=== PATIENT | male | born 1960 | race Caucasian/White ===

== ENCOUNTER 2018-11-10 09:37 | Inpatient (IN) | payer OTHER ==
[2018-11-10] MEDS ORDERED: LIDOCAINE 1% MPF 5 ML VIAL ONE (10:43)
[2018-11-10] MEDS ORDERED: BUPIVACAINE 0.25% PF 10 ML VIAL ONE (10:46)
[2018-11-10] MEDS ORDERED: LIDOCAINE 1% 20 ML MDV ONE (10:49)
--- NOTE | 2018-11-10 11:43 | RAD REPORT ---
EXAM DESCRIPTION: RAD - Hand Left 3 View - 11/10/2018 11:28 am CLINICAL HISTORY: injury with circular saw COMPARISON: No comparisons FINDINGS: Soft tissue laceration with comminuted tuft fracture involving the second and third finger . No radiopaque foreign body is seen.
[2018-11-10] MEDS ORDERED: NA CHLORIDE 0.9% 500 ML ONE (11:50)
[2018-11-10] MEDS ORDERED: CEFAZOLIN/SWI 1gm 1 GM/10 ML SYR ONE (11:51)
--- NOTE | 2018-11-10 11:55 | ER ---
Nurse's Notes [facility] Name: Yves Lan Age: 58 yrs Sex: Male : 1960 Arrival Date: 11/10/2018 Time: 09:39 Bed 10 Private MD: Unknown, Unknown Diagnosis: Displaced fracture of distal phalanx of left middle finger-open;Displaced fracture of distal phalanx of left index finger-open Presentation: 11/10 10:18 Presenting complaint: Patient states: i was cutting a piece of wood with a skill saw tw2 and it cut 1st and 2nd finger on the LEFT hand, about 1 hour ago. Transition of care: patient was not received from another setting of care. Onset of symptoms was November 10, 2018. Risk Assessment: Do you want to hurt yourself or someone else? Patient reports no desire to harm self or others. Initial Sepsis Screen: Does the patient meet any 2 criteria? No. Patient's initial sepsis screen is negative. Does the patient have a suspected source of infection? No. Patient's initial sepsis screen is negative. Care prior to arrival: None. 10:18 Method Of Arrival: Ambulatory tw2 10:18 Acuity: GREGORY 4 tw2 11:37 Acuity: GREGORY 3 iw Triage Assessment: 11:00 General: Behavior is calm. iw 12:00 General: Appears in no apparent distress. iw 12:00 Injury Description: Laceration. iw Historical: - Allergies: 10:20 Iodinated Contrast Media - IV Dye; tw2 - Home Meds: 10:20 bisoprolol fumarate Oral [Active]; irbesartan Oral [Active]; tw2 - PMHx: 10:20 Hypertension; Kidney stones; SVT; tw2 - PSHx: 10:20 Bilateral knee repacement; foot sx; Hernia repair; cardiac ablation; tw2 - Immunization history:: Last tetanus immunization: unknown. - Social history:: Smoking status: . - Ebola Screening: : Patient denies travel to an Ebola-affected area in the 21 days before illness onset. Screenin:21 Abuse screen: Denies threats or abuse. Nutritional screening: No deficits noted. tw2 Tuberculosis screening: No symptoms or risk factors identified. Fall Risk None identified. Assessment: 10:50 General: Appears Behavior is calm. Pain: Complains of pain in left hand. Neuro: Level iw of Consciousness is awake, alert, Oriented to person, place, time. Cardiovascular: Patient's skin is warm and dry. Respiratory: Respiratory effort is even, unlabored, Respiratory pattern is regular. Derm: Skin is intact, is healthy with good turgor. Musculoskeletal: Range of motion: intact in all extremities. Injury Description: Laceration sustained to palmar aspect of distal phalanx of left middle finger and palmar aspect of distal phalanx of left index finger is jagged, 0.5 to 2.5 cm long, a small amount of bleeding noted at this time. 11:10 Reassessment: fingers irrigated with 2L NS and chlorhexidine soap. iw Vital Signs: 10:19 BP 154 / 80; Pulse 71; Resp 18; Temp 98.4(O); Pulse Ox 95% on R/A; Weight 117.93 kg tw2 (R); Height 5 ft. 11 in. (180.34 cm); Pain 10/10; 10:19 Body Mass Index 36.26 (117.93 kg, 180.34 cm) tw2 ED Course: 09:39 Patient arrived in ED. ag5 09:40 Unknown, Unknown is Private Physician. ag5 10:19 Triage completed. tw2 10:19 Arm band placed on. tw2 10:22 Donnell Gaston PA is PHCP. cp 10:22 Alvino Bernard MD is Attending Physician. cp 10:22 Bed in low position. Call light in reach. Adult w/ patient. tw2 10:36 Mindi Dominguez, RN is Primary Nurse. iw 11:32 XRAY Hand LEFT 3 View In Process Unspecified. EDMS 11:43 EKG done, by technician test systems. reviewed by Donnell SHEIKH. at1 11:45 Initial lab(s) drawn, by ky, sent to lab. Inserted saline lock: 20 gauge in right hand, iw using aseptic technique. 11:52 Leonardo Cook MD is Hospitalizing Provider. cp 12:25 No provider procedures requiring assistance completed. Patient admitted, IV remains in iw place. Administered Medications: 11:00 Drug: Lidocaine (1 %) 10 mg Route: Infiltration; iw 11:00 Drug: Marcaine (0.5 %) 10 ml Volume: 10 ml; Route: Infiltration; iw 12:09 Drug: Ancef 1 grams Route: IVPB; Site: right hand; iw 12:10 Drug: NS 0.9% 500 ml Route: IV; Rate: bolus; Site: right hand; iw 12:18 Drug: Tetanus-Diphtheria Toxoid Adult 0.5 ml {Tanning Wheel Filler: [employer]. Exp: 09/18/2019. Lot #: [id number]. } Route: IM; Site: right deltoid; Outcome: 11:55 Decision to Hospitalize by Provider. cp 12:30 Admitted to OR accompanied by nurse, via wheelchair, with chart. iw 12:30 Condition: good 12:30 Discharge instructions given to patient, family, Instructed on the need for admit, Demonstrated understanding of instructions. 12:31 Patient left the ED. iw Signatures: Dispatcher [employer] Mindi Casarez, RN RN iw Anitha Katz, retail district manager EKG Tat1 Donnell Gaston PA PA cp Wise, Tara RN RN tw2 Ngoc Whyte ag5
--- NOTE | 2018-11-10 11:56 | EDPHYS ---
Physician Documentation [facility] Name: Yves Lan Age: 58 yrs Sex: Male : 1960 Arrival Date: 11/10/2018 Time: 09:39 Bed 10 Private MD: Unknown, Unknown ED Physician Alvino Bernard HPI: 11/10 10:35 This 58 yrs old Male presents to ER via Ambulatory with complaints of Finger cp Injury, Laceration. 10:35 The patient or guardian reports injury, a laceration, irregular, pain. The complaints cp affect the palmar aspect of distal phalanx of left index finger and palmar aspect of distal phalanx of left middle finger. Context: The problem was sustained at home, resulted from electric saw. Onset: The symptoms/episode began/occurred 1 hour(s) ago. Associated signs and symptoms: Pertinent negatives: cyanosis distally. Severity of symptoms: in the emergency department the symptoms are unchanged, despite home interventions. Historical: - Allergies: 10:20 Iodinated Contrast Media - IV Dye; tw2 - Home Meds: 10:20 bisoprolol fumarate Oral [Active]; irbesartan Oral [Active]; tw2 - PMHx: 10:20 Hypertension; Kidney stones; SVT; tw2 - PSHx: 10:20 Bilateral knee repacement; foot sx; Hernia repair; cardiac ablation; tw2 - Immunization history:: Last tetanus immunization: unknown. - Social history:: Smoking status: . - Ebola Screening: : Patient denies travel to an Ebola-affected area in the 21 days before illness onset. ROS: 10:40 Constitutional: Negative for fever. cp 10:40 Neck: Negative for pain with movement, pain at rest. cp 10:40 Cardiovascular: Negative for chest pain, palpitations. 10:40 Respiratory: Negative for cough, shortness of breath, wheezing. 10:40 Abdomen/GI: Negative for abdominal pain, vomiting, diarrhea, constipation. 10:40 Skin: Positive for laceration(s), of the palmar aspect of distal phalanx of left middle finger and palmar aspect of distal phalanx of left index finger. 10:40 Neuro: Negative for altered mental status, headache, syncope. 10:40 All other systems are negative. Exam: 10:50 Constitutional: The patient appears in no acute distress, alert, awake, cp non-diaphoretic, non-toxic, well developed, well nourished, uncomfortable. 10:50 Head/Face: Normocephalic, atraumatic. cp 10:50 Eyes: Periorbital structures: appear normal, Conjunctiva: normal, no exudate, no injection, Lids and lashes: appear normal, bilaterally. 10:50 ENT: External ear(s): are unremarkable, Nose: is normal, Mouth: is normal, Posterior pharynx: is normal, airway is patent. 10:50 Neck: ROM/movement: is normal, is supple, without pain, no range of motions limitations, no nuchal rigidity. 10:50 Chest/axilla: Inspection: normal, Palpation: is normal, no crepitus, no tenderness. 10:50 Cardiovascular: Rate: normal, Rhythm: regular, Edema: is not appreciated. 10:50 Respiratory: the patient does not display signs of respiratory distress, Respirations: normal, no use of accessory muscles, labored breathing, is not present, Breath sounds: are clear throughout, no decreased breath sounds. 10:50 Abdomen/GI: Inspection: abdomen appears normal, Palpation: abdomen is soft and non-tender, in all quadrants. 10:50 Musculoskeletal/extremity: Perfusion: the extremity is with brisk capillary refill, the distal phalanx of left index finger and distal phalanx of left middle finger decreased sensation. 10:50 Skin: injury, laceration(s), of the palmar aspect of distal phalanx of left index finger, of the palmar aspect of distal phalanx of left index finger, that can be described as no foreign body, irregular, with mild bleeding. 11:45 ECG was reviewed by the Attending Physician. cp Vital Signs: 10:19 BP 154 / 80; Pulse 71; Resp 18; Temp 98.4(O); Pulse Ox 95% on R/A; Weight 117.93 kg tw2 (R); Height 5 ft. 11 in. (180.34 cm); Pain 10/10; 10:19 Body Mass Index 36.26 (117.93 kg, 180.34 cm) tw2 MDM: 10:28 Patient medically screened. cp 11:29 Physician consultation: Stanford Curiel MD was called at 11:25, was contacted at 11:25, cp regarding consult, patient's condition, will perform wound irrigation and repair laceration in OR. 11:30 Data reviewed: vital signs, nurses notes, radiologic studies, plain films. cp 11:30 Differential diagnosis: open fracture, closed fracture, amputation, skin avulsion. Test cp interpretation: by ED physician or midlevel provider: plain radiologic studies, xrays of left hand comminuted fractures of distal phalanx of left index and left middle fingers. 11:37 Physician consultation: Leonardo Cook MD was called at 11:38, left message on voicemail. 11/10 11:29 Order name: Basic Metabolic Panel 11/10 11:29 Order name: CBC with Diff cp 11/10 11:29 Order name: PT-INR 11/10 12:08 Order name: CBC with Automated Diff EDMS 11/10 12:08 Order name: CBC with Automated Diff EDMS 11/10 12:08 Order name: CBC with Automated Diff EDMS 11/10 10:35 Order name: XRAY Hand LEFT 3 View 11/10 11:29 Order name: XRAY Chest (1 view) 11/10 12:08 Order name: CBC with Automated Diff EDMS 11/10 12:09 Order name: Comprehensive Metabolic Panel EDMS 11/10 12:09 Order name: Comprehensive Metabolic Panel EDMS 11/10 12:09 Order name: Comprehensive Metabolic Panel EDMS 11/10 12:09 Order name: Comprehensive Metabolic Panel EDMS 11/10 10:35 Order name: Dressing - Wound; Complete Time: 12:26 11/10 10:35 Order name: Gloves, Sterile; Complete Time: 10:49 11/10 10:35 Order name: Setup Suture Tray; Complete Time: 10:49 11/10 11:22 Order name: IV; Complete Time: 12:10 11/10 11:29 Order name: EKG; Complete Time: 11:30 11/10 11:29 Order name: EKG - Nurse/Tech; Complete Time: 11:47 11/10 11:29 Order name: Labs collected and sent; Complete Time: 12:26 11/10 11:29 Order name: O2 Per Protocol; Complete Time: 12:26 11/10 11:29 Order name: O2 Sat Monitoring; Complete Time: 12:26 11/10 12:08 Order name: CONS Physician Consult EDMS 11/10 12:08 Order name: NPO EDMN EC:45 Rate is 60 beats/min. Rhythm is regular. OH interval is normal. QRS interval is cp prolonged at 102 msec. QT interval is normal. T waves are Inverted in lead aVR. Interpreted by me. Reviewed by me. Administered Medications: 11:00 Drug: Lidocaine (1 %) 10 mg Route: Infiltration; iw 11:00 Drug: Marcaine (0.5 %) 10 ml Volume: 10 ml; Route: Infiltration; iw 12:09 Drug: Ancef 1 grams Route: IVPB; Site: right hand; iw 12:10 Drug: NS 0.9% 500 ml Route: IV; Rate: bolus; Site: right hand; iw 12:18 Drug: Tetanus-Diphtheria Toxoid Adult 0.5 ml {Marine Fitter: [employer]. Exp: iw 09/18/2019. Lot #: [id number]. } Route: IM; Site: right deltoid; Disposition: 12:45 Chart complete. cp 15:45 Co-signature as Attending Physician, Alvino Bernard MD I agree with the assessment and kdr plan of care. Disposition: 11/10/18 11:55 Hospitalization ordered by Leonardo Cook for Observation. Preliminary diagnosis are Displaced fracture of distal phalanx of left middle finger - open, Displaced fracture of distal phalanx of left index finger - open. - Bed requested for Operating Room. - Status is Observation. iw - Condition is Stable. - Problem is new. - Symptoms have improved. UTI on Admission? No Signatures: Dispatcher [employer] EDMN Alexa Villa RN RN Alvino Bernard MD MD [email or web address] Mindi Dominguez RN RN iw Donnell Gaston PA PA cp Karla Mora RN RN tw2 Corrections: (The following items were deleted from the chart) 11:37 11:29 Cardiac monitoring ordered. cp iw 12:03 11:55 Hospitalization Ordered by Leonardo Cook MD for Inpatient Admission. Preliminary diagnosis is Displaced fracture of distal phalanx of left middle finger - open; Displaced fracture of distal phalanx of left index finger - open. Bed requested for Telemetry/MedSurg (Inpatient). Status is Inpatient Admission. Condition is Stable. Problem is new. Symptoms have improved. UTI on Admission? No. cp 12:30 12:03 11/10/2018 11:55 Hospitalization Ordered by Leonardo Cook MD for Inpatient cp Admission. Preliminary diagnosis is Displaced fracture of distal phalanx of left middle finger - open; Displaced fracture of distal phalanx of left index finger - open. Bed requested for Telemetry/MedSurg (Inpatient). Status is Inpatient Admission. Condition is Stable. Problem is new. Symptoms have improved. UTI on Admission? No. dw 12:31 12:30 11/10/2018 11:55 Hospitalization Ordered by Leonardo Cook MD for Observation. iw Preliminary diagnosis is Displaced fracture of distal phalanx of left middle finger - open; Displaced fracture of distal phalanx of left index finger - open. Bed requested for Operating Room. Status is Observation. Condition is Stable. Problem is new. Symptoms have improved. UTI on Admission? No. cp
[2018-11-10] MEDS ORDERED: ONDANSETRON 4 MG/2 ML VIAL IV PRN (12:05)
[2018-11-10] MEDS ORDERED: NA CHLORIDE 0.9% 1,000 ML IV SCH (12:05)
[2018-11-10] MEDS ORDERED: TETANUS & DIPHTHERIA TOX,ADULT 0.5 ML VIAL ONE (12:15)
[2018-11-10 12:24] LABS: Absolute Lymphocytes (CBC) 2.4 K/uL (0.7-4.9); Hematocrit 44.1 % (39.6-49.0); Lymphocytes % 27.4 % (15.3-44.8); MPV 7.6 fL (7.6-11.3); RBC Red Blood Cell Count 5.24 M/uL (4.33-5.43)
[2018-11-10 12:25] LABS: Protime INR 0.91
[2018-11-10] MEDS ORDERED: NA CHLORIDE 0.9% 1,000 ML ONE (12:34)
[2018-11-10] MEDS ORDERED: LIDOCAINE 2% MPF 5 ML VIAL ONE (13:05)
[2018-11-10] MEDS ORDERED: FENTANYL CITR 100 MCG/2 ML ONE (13:05)
[2018-11-10] MEDS ORDERED: PROPOFOL 200 MG/20 ML VIAL IV ONE (13:05)
[2018-11-10] MEDS ORDERED: KETOROLAC 30 MG/ML INJ ONE (13:13)
[2018-11-10] MEDS ORDERED: ONDANSETRON 4 MG/2 ML VIAL ONE (13:13)
[2018-11-10] MEDS ORDERED: dexAMETHasone 10 MG/ML VIAL ONE (13:14)
[2018-11-10 14:14] VITALS: O2SAT 97
[2018-11-10] MEDS ORDERED: CODEINE 30MG/APAP 300MG TAB ONE (14:41)
[2018-11-10 15:23] VITALS: BP 113/57; TEMP 97.2
--- NOTE | 2018-11-10 22:31 | OP ---
Surgeon: Stanford Curiel MD Preoperative Diagnosis: Laceration to the tip of the middle and index of the left hand. Postoperative Diagnosis: Laceration to the tip of the middle and index of the left hand. Procedure Performed: Debridement of skin and subcutaneous tissue, bone. Flap closure, index and mid dle. Partial nail bed ablation of the index, nail bed repair of the middle. Anesthesia: General. Procedure In Detail: After satisfactory induction of general anesthesia, left hand was prepped with Betadine scrub, Betadine paint, dry sterile drapes placed in the usual manner. The arm was elevated, exsanguinated with an Esmarch. Tourniquet inflated to 250 mmHg and placed on the [place] table. The nail plate was removed from the middle finger and then the wounds were debridement of skin, subcutan eous tissue, bone with scalpel forceps. A file was also used to file down the bony irregularities of the middle. After jet lavaged, the patient underwent partial nail bed ablation of the middle finger and then nail bed repair of the index and nail bed ablation. We used the scalpel to excise the derm al matrix. Electrocautery was used for hemostasis. Then, closure was performed of the finger with 4 -0 Prolene advancing the flaps close. The index finger had a laceration of the nail bed. This was r epaired with 5-0 chromic and then the flaps were advanced and closed with 4-0 Prolene. The nail plat e was sewn in place with a 4-0 Prolene on the middle finger. Tourniquet was released. Dressed with Xeroform, 2 inch Armand. Patient tolerated the procedure well and returned to Recovery. NAKUL/PENG Voice ID: [id number] Report ID: [id number]
== END 2018-11-10 15:15 | disposition home or self-care (01) | DRG 465 ==
LOC: ER 09:37 → ERHOLD 11:55
PROVIDERS: ADMIT Family Medicine; ATTEND Family Medicine
PROC: 0HXGXZZ Transfer Left Hand Skin, External Approach (ICD-10-PCS; 2018-11-10)
PROC: 0HXGXZZ Transfer Left Hand Skin, External Approach (ICD-10-PCS; 2018-11-10)
PROC: 0HQQXZZ Repair Finger Nail, External Approach (ICD-10-PCS; 2018-11-10)
PROC: 0H5 Skin and Breast, Destruction (ICD-10-PCS; 2018-11-10)
PROC: 0H5 Skin and Breast, Destruction (ICD-10-PCS; 2018-11-10)
PROC: 0PDV0ZZ Extraction of Left Finger Phalanx, Open Approach (ICD-10-PCS; principal; 2018-11-10 14:00)
DX: S62.601B Fracture of unspecified phalanx of left index finger, initial encounter for open fracture (principal); S62.603B Fracture of unspecified phalanx of left middle finger, initial encounter for open fracture; W31.2XXA Contact with powered woodworking and forming machines, initial encounter; Y92.009 Unspecified place in unspecified non-institutional (private) residence as the place of occurrence of the external cause; I10 Essential (primary) hypertension; Z96.653 Presence of artificial knee joint, bilateral; Z91.041 Radiographic dye allergy status; Z23 Encounter for immunization
CPT/HCPCS: 85025; 85610; 88304; 88305; 90471; 90714; 93005; 96374; 99285; J0690; J1100; J2405; J2704; J3010; J7030